=== PATIENT | female | born 1935 | race Caucasian/White ===

== ENCOUNTER 2018-10-27 18:09 | Observation (INO) | payer OTHER ==
[2018-10-27 18:34] VITALS: BMI 28.0
[2018-10-27 19:10] LABS: HEMATOCRIT 44.7 % (32.4-45.2); HEMOGLOBIN 14.3 GM/dl (10.7-15.3); MCH 27.3 pg (25.7-33.7); MCHC 31.9 g/dl (32.0-36.0); MEAN CELL VOLUME 85.5 fl (80-96); MEAN PLT VOLUME 9.8 fl (7.5-11.1); PLATELET COUNT 140 K/MM3 (134-434); RBC 5.23 M/mm3 (3.60-5.2); RDW 12.6 % (11.6-15.6); WHITE BLOOD COUNT 7.2 K/mm3 (4.0-10.8)
[2018-10-27 19:23] LABS: ALBUMIN 4.1 g/dl (3.4-5.0); ALK PHOS 116 U/L (45-117); ANION GAP 6 MMOL/L (8-16); BILIRUBIN,TOTAL 0.9 mg/dl (0.2-1); BLOOD UREA NITROGEN 13 mg/dl (7-18); CHLORIDE 100 mmol/L (98-107); CO2 29 mmol/L (21-32); CREATININE 0.6 mg/dl (0.55-1.3); GLUCOSE,RANDOM 100 mg/dl (74-106); POTASSIUM 3.6 mmol/L (3.5-5.1); SGOT/AST 24 U/L (15-37); SGPT/ALT 22 U/L (13-61); SODIUM 135 mmol/L (136-145); TOT PROT 7.2 g/dl (6.4-8.2)
[2018-10-27] MEDS ORDERED: metoPROLOL SUCCINATE 25 MG TAB.SR.24H (FP) PO ONE (20:30)
--- NOTE | 2018-10-27 21:27 | HP ---
Admitting History and Physical - Admission Chief Complaint: dizziness, fast heart beats and shortness of breathe at home when ambulating History Source: Patient, Family Member Limitations to Obtaining History: No Limitations - Past Medical History Cardiovascular: Yes: HTN, Hyperlipdemia Pulmonary: Yes: COPD ...: No Endocrine: Yes: Hypothyroidism - Smoking History Smoking history: Former smoker Have you smoked in the past 12 months: No Aproximately how many cigarettes per day: 0 If you are a former smoker, when did you quit?: 1999 - Alcohol/Substance Use Hx Alcohol Use: No (SOCIALLY) Home Medications - Allergies Allergies/Adverse Reactions: Allergies Allergy/AdvReac Type Severity Reaction Status Date / Time Penicillins Allergy Intermediate Rash Verified 10/27/18 18:34 - Home Medications Home Medications: Ambulatory Orders Albuterol Sulfate Inhaler - [Ventolin Hfa Inhaler -] 2 inh PO TID 10/27/18 Amlodipine Besylate [Norvasc -] 5 mg PO DAILY 10/27/18 Aspirin [ASA -] 81 mg PO DAILY 10/27/18 Atorvastatin Calcium [Lipitor] 10 mg PO DAILY 10/27/18 Budesonide/Formeterol Fumarate [SYMBICORT 160/4.5mcg -] 2 inh PO DAILY 10/27/18 Levothyroxine [Synthroid -] 25 mcg PO DAILY 10/27/18 Losartan/Hydrochlorothiazide [Losartan-Hctz 100-12.5 mg Tab] 1 each PO DAILY Potassium Chloride 10 meq PO DAILY 10/27/18 Tiotropium [place] [Spiriva] 18 mcg IH DAILY 10/27/18 Vit C/E/Zn/Coppr/Lutein/Zeaxan [Preservision Areds 2 Softgel] 2 each PO DAILY Review of Systems - Review of Systems Constitutional: reports: Weakness Cardiovascular: reports: Palpitations, Shortness of Breath Respiratory: reports: SOB, SOB on Exertion Gastrointestinal: reports: No Symptoms Genitourinary: reports: No Symptoms Psychiatric: reports: Anxiety Physical Examination Vital Signs: Vital Signs Temperature 97.9 F 10/27/18 18:23 Pulse Rate 93 H 10/27/18 18:23 Respiratory Rate 10/27/18 19:54 Blood Pressure 152/88 10/27/18 18:23 O2 Sat by Pulse Oximetry (%) Constitutional: Yes: No Distress Eyes: Yes: Conjunctiva Clear, EOM Intact HENT: Yes: Atraumatic, Normocephalic Neck: Yes: Supple, Trachea Midline Cardiovascular: Yes: Tachycardia, Pulse Irregular Respiratory: Yes: Regular, CTA Bilaterally Gastrointestinal: Yes: Normal Bowel Sounds, Soft, Abdomen, Obese. No: Hepatomegaly, Splenomegaly, Tenderness Extremities: No: Calf Tenderness Edema: No Peripheral Pulses WNL: Yes Integumentary: Yes: Other (left inner mello skin nodule present, slightly inflammed) Neurological: Yes: Alert, Oriented Psychiatric: Yes: Alert, Oriented Labs: CBC, BMP 10/27/18 18:50 10/27/18 18:50 Imaging - Results Chest X-ray: Other (no cardiomegaly , no pleural effusion, no infiltrate) EKG: Other (sudden changes in HR form 80 b/min tp 154 b/min, irregular, patient symptomatic during the arrhythmia) Problem List - Problems (1) Supraventricular arrhythmia Assessment/Plan: start Toprol 25 mg po bid telemetry monitoring, CBC, CMP, TSH, cardiac enzymes, Cardiology consults EKG in am Code(s): I49.9 - CARDIAC ARRHYTHMIA, UNSPECIFIED (2) Hypothyroidism Assessment/Plan: TSH levels Code(s): E03.9 - HYPOTHYROIDISM, UNSPECIFIED (3) HTN (hypertension) Assessment/Plan: continue VAlsart/HCTz , Norvasc Code(s): I10 - ESSENTIAL (PRIMARY) HYPERTENSION (4) COPD (chronic obstructive pulmonary disease) Assessment/Plan: Spiriva and Symbicort Code(s): J44.9 - CHRONIC OBSTRUCTIVE PULMONARY DISEASE, UNSPECIFIED
[2018-10-27] MEDS: amLODIPine BESYLATE 5 MG TABLET (FP) PO SCH (21:41)
[2018-10-27] MEDS: ATORVASTATIN CA 20 MG TABLET (FP) PO SCH (21:41)
[2018-10-27] MEDS: BUDESONIDE/FORMETEROL FUMARATE 160/4.5 mcg INHALER IH SCH (22:20)
[2018-10-27] MEDS: TIOTROPIUM BROMIDE 2.5 MCG (SPIRIVA) RESPIMAT INHALER IH SCH (22:20)
[2018-10-28] MEDS: LEVOTHYROXINE NA 50 MCG TABLET (FP) PO SCH (06:50)
[2018-10-28] MEDS ORDERED: PT OWN MED DRAWER 7, Y5N ONE (09:36)
[2018-10-28] MEDS: BUDESONIDE/FORMETEROL FUMARATE 160/4.5 mcg INHALER IH SCH ×2 (09:47→22:03)
[2018-10-28] MEDS: metoPROLOL SUCCINATE 25 MG TAB.SR.24H (FP) PO SCH ×2 (09:47→22:00)
[2018-10-28] MEDS: HYDROCHLOROTHIAZIDE 12.5 MG CAPSULE (FP) PO SCH (09:47)
[2018-10-28] MEDS: TIOTROPIUM BROMIDE 2.5 MCG (SPIRIVA) RESPIMAT INHALER IH SCH (09:47)
[2018-10-28] MEDS: VALSARTAN 80 MG TABLET (UD) PO SCH (09:47)
[2018-10-28] MEDS: ASPIRIN 81 MG CHEWABLE TABLETS PO SCH (09:47)
--- NOTE | 2018-10-28 11:02 | EKG ---
Test Reason : Blood Pressure : / mmHG Vent. Rate : 083 BPM Atrial Rate : 083 BPM P-R Int : 132 ms QRS Dur : 098 ms QT Int : 388 ms P-R-T Axes : 000 067 079 degrees QTc Int : 455 ms SINUS RHYTHM WITH PREMATURE SUPRAVENTRICULAR COMPLEXES ANTERIOR INFARCT (CITED ON OR BEFORE 27-OCT-2018) ABNORMAL ECG WHEN COMPARED WITH ECG OF 27-OCT-2018 18:48, PREMATURE VENTRICULAR COMPLEXES ARE NO LONGER PRESENT Confirmed by DAVID WINTER MD ([id number]) on 10/28/2018 11:02:14 AM Referred By: MISA GARRETT Confirmed By:DAVID WINTER MD
--- NOTE | 2018-10-28 11:02 | EKG ---
Test Reason : Blood Pressure : / mmHG Vent. Rate : 093 BPM Atrial Rate : 093 BPM P-R Int : 170 ms QRS Dur : 094 ms QT Int : 376 ms P-R-T Axes : 064 066 067 degrees QTc Int : 467 ms SINUS RHYTHM WITH OCCASIONAL PREMATURE VENTRICULAR COMPLEXES AND PREMATURE ATRIAL COMPLEXES CANNOT RULE OUT ANTERIOR INFARCT , AGE UNDETERMINED ABNORMAL ECG NO PREVIOUS ECGS AVAILABLE Confirmed by DAVID WINTER MD ([id number]) on 10/28/2018 11:02:19 AM Referred By: YAZMIN ARIAS Confirmed By:DAVID WINTER MD
[2018-10-28 13:16] LABS: URINE APPEARANCE CLEAR; URINE COLOR YELLOW; URINE GLUCOSE (UA) NEGATIVE (NEGATIVE)
[2018-10-28 13:17] LABS: PH,URINE 6.5 (4.5-8); URINE BILIRUBIN NEGATIVE (NEGATIVE); URINE KETONE NEGATIVE (NEGATIVE); URINE LEUK ESTERASE 2+ (NEGATIVE); URINE NITRITE NEGATIVE (NEGATIVE); URINE PROTEIN NEGATIVE (NEGATIVE); URINE RBC 0-3 /hpf (0-4); URINE UROBILINOGEN 0.2 (0.2-1.0); URINE WBC 0-3 /hpf (0-5)
[2018-10-28 13:18] LABS: EPI CELLS 1+ /HPF; URINE BACTERIA FEW /hpf (NEGATIVE)
--- NOTE | 2018-10-28 13:42 | CON.CARD ---
Consult Consult Specialty:: Cardiology Referred by:: Mark Reason for Consultation:: abnormal EKG - History of Present Illness Chief Complaint: palps, dyspnea on exertion History of Present Illness: 83F h/o hypothyroidism, HTN, COPD p/w dizziness. Has had dizziness on and off for the last week, worse when standing up and better when lying down. denies palpitations, although per report endorsed this prior. Last time she felt dizziness like this was at least a year ago. She felt dizziness again yesterday and saw Dr. Flores, EKG showed tachycardia with poor baseline. Sees Dr. Samuels for cardio, had been seen for similar in the past thought to be sinus tachy with PACs, was briefly on AC which was stopped at that time. Currently feels well, denies chest pain, palps, dizziness, lightheadedness. - Past Medical History Cardio/Vascular: Yes: HTN, Hyperlipdemia Pulmonary: Yes: COPD ...: No Endocrine: Yes: Hypothyroidism - Alcohol/Substance Use Hx Alcohol Use: No (SOCIALLY) - Smoking History Smoking history: Former smoker Have you smoked in the past 12 months: No Aproximately how many cigarettes per day: 0 If you are a former smoker, when did you quit?: 1999 Home Medications - Allergies Allergies/Adverse Reactions: Allergies Allergy/AdvReac Type Severity Reaction Status Date / Time Penicillins Allergy Intermediate Rash Verified 10/27/18 18:34 - Home Medications Home Medications: Ambulatory Orders Albuterol Sulfate Inhaler - [Ventolin Hfa Inhaler -] 2 inh PO TID 10/27/18 Amlodipine Besylate [Norvasc -] 5 mg PO DAILY 10/27/18 Aspirin [ASA -] 81 mg PO DAILY 10/27/18 Atorvastatin Calcium [Lipitor] 10 mg PO DAILY 10/27/18 Budesonide/Formeterol Fumarate [SYMBICORT 160/4.5mcg -] 2 inh PO DAILY 10/27/18 Levothyroxine [Synthroid -] 25 mcg PO DAILY 10/27/18 Losartan/Hydrochlorothiazide [Losartan-Hctz 100-12.5 mg Tab] 1 each PO DAILY Potassium Chloride 10 meq PO DAILY 10/27/18 Tiotropium [place] [Spiriva] 18 mcg IH DAILY 10/27/18 Vit C/E/Zn/Coppr/Lutein/Zeaxan [Preservision Areds 2 Softgel] 2 each PO DAILY Family Disease History - Family Disease History Family History: Unremarkable Review of Systems - Review of Systems Constitutional: reports: No Symptoms Eyes: reports: No Symptoms HENT: reports: No Symptoms Neck: reports: No Symptoms Cardiovascular: reports: No Symptoms Respiratory: reports: No Symptoms Gastrointestinal: reports: No Symptoms Genitourinary: reports: No Symptoms Musculoskeletal: reports: No Symptoms Integumentary: reports: No Symptoms Neurological: reports: No Symptoms Endocrine: reports: No Symptoms Hematology/Lymphatic: reports: No Symptoms Psychiatric: reports: No Symptoms Vital Signs: Vital Signs Temperature 98.2 F 10/28/18 10:00 Pulse Rate 78 10/28/18 10:00 Respiratory Rate 18 10/28/18 10:00 Blood Pressure 118/80 10/28/18 10:00 O2 Sat by Pulse Oximetry (%) 95 10/28/18 10:00 Constitutional: Yes: Well Nourished, No Distress Eyes: Yes: Conjunctiva Clear, EOM Intact HENT: Yes: Atraumatic, Normocephalic Neck: Yes: Supple, Trachea Midline Respiratory: Yes: Regular, CTA Bilaterally Gastrointestinal: Yes: Normal Bowel Sounds, Soft Cardiovascular: Yes: Pulse Irregular JVD: No Carotid Bruit: No PMI: Non-Displaced Heart Sounds: Yes: S1, S2 Musculoskeletal: No: Back Pain Extremities: No: Cold Edema: No Peripheral Pulses WNL: No Peripheral Pulses: 1+ Left Doralis Pedis, 1+ Right Dorsalis Pedis Integumentary: No: Jaundice Neurological: Yes: Alert, Oriented Psychiatric: No: Agitated - Other Data Labs, Other Data: CBC, BMP 10/27/18 18:50 10/27/18 18:50 Troponin, BNP 10/27/18 18:50 Troponin I < 0.03 Troponin, BNP 10/27/18 18:50 Troponin I < 0.03 Assessment/Plan MPI 02/24 (leanna): Ischemic ST-T changes occuring during rapid PSVT (HR 150 bpm)-- including when present prior to Lexiscan injection. These resolve during sinus rhythm. PSVT, frequent APCs, infrequent PVCs. No evidence of ischemia. Fixed apical and anteroseptal defect with significant breast attenuation present: cannot exclude prior silent anteroseptal infarct based on the possibility of hypokinesis of this territory on gated images, although presence of gating artifact confounds assessment. Normal LVEF. Small LV cavity size (EDV 42 mL), with no transient dilation pattern. Echo 02/24: 1. Sinus rhythm with APCs. 2. This was a technically difficult study with suboptimal views. 3. The left ventricular size is normal. 4. Assessment of overall left ventricular systolic function is confounded by poor image quality. LVEF is likely in the low-normal range, estimated between 50 - 55 %. Stallings's estimate is incorrect, due to measurement error--cannot be accurately measured. 5. LA pressure is uncertain. 6. The right ventricle is normal in size and function. 7. Left atrium is mildly dilated by volume. 8. Unable to estimate RVSP due to inadequate TR jet spectral doppler profile. 9. Normal valve function. Echo 01/2017 ([facility]): nl LV/EF. nl RV. nl LA. valves WNL. LE arterial dopplers 02/24: bilateral biphasic waveforms throughout suggestive of inflow dz CT chest 12/2016: + centrilobular emphsema. bibasilar nodular densities suspicious for metastatic dz. moderate to severe coronary calcifications. moderate mural calcification thoracic aorta, small ulcerated plaque distal thoracic aorta. pulmonary trunk 3.3 cm. IMAGES REVIEWED: LMCA calcification, small prox LAD calcification, extensive calc more distally. diffuse calcifications LCX and RCA beginning proximally. EKG from clinic sinus tach with PACs 145 bpm EKG: sinus rhythm with PACs and PVCs tele sinus with PACs, PVCs with episodes of sinus tach with PACs/PVCs, atrial tachycardia tachycardia, frequent PACs, PVCs, dizziness - trop neg x 1, TSH nl - likely atrial tachycardia - EKGs and tele strips reviewed with EP, recommend no anticoagulation per discussion with EP - continue metoprolol succinate 25 mg BID - echo pending, if benign findings no further cardiac workup, follow up with Dr. Samuels HTN - on amlodipine, losartan CAD - extensive coronary calcifications on CT chest, inc LM and prox 3VD, asymptomatic - on aspirin, statin HLD - on statin COPD - stable on inhalers
--- NOTE | 2018-10-28 15:42 | ECHO ---
Name: MOISES SHAH Exam:Adult Echocardiogram Study Date: 10/28/2018 02:40 PM Age: 83 yrs Reason For Study: Tachycardia Height: 63 in Weight: 159 lb BSA: 1.8 m2 MMode/2D Measurements & Calculations IVSd: 1.4 cm Ao root diam: 2.5 cm LVIDd: 4.0 cm LA dimension: 3.0 cm LVIDs: 2.2 cm LVPWd: 1.1 cm EDV(Teich): 69.8 ml LVOT diam: 2.0 cm ESV(Teich): 15.7 ml Doppler Measurements & Calculations MV E max candelario: 65.1 cm/sec MV A max candelario: 121.2 cm/sec MV dec slope: 528.3 cm/sec2 MV E/A: 0.54 Ao V2 max: 168.8 cm/sec LV V1 max P.7 mmHg Ao max P.4 mmHg LV V1 max: 119.4 cm/sec AMRIT(V,D): 2.2 cm2 PA V2 max: 89.0 cm/sec PI end-d candelario: 86.4 cm/sec PA max P.2 mmHg Procedure A complete two-dimensional transthoracic echocardiogram was performed (2D, M-mode, Doppler and color flow Doppler). Left Ventricle The left ventricular size, thickness and function are normal. The left ventricular ejection fraction is normal. Ejection Fraction = 55-60%. The left ventricular wall motion is normal. Right Ventricle The right ventricle is normal in size and function. Atria Normal left and right atrial size and function. Mitral Valve There is no mitral regurgitation noted. Tricuspid Valve There is trace tricuspid regurgitation. There was insufficient TR detected to calculate RV systolic p ressure. Aortic Valve No hemodynamically significant valvular aortic stenosis. No aortic regurgitation is present. Pulmonic Valve There is no pulmonic valvular regurgitation. Great Vessels The aortic root is normal size. Pericardium/Pleura There is no pericardial effusion. Interpretation Summary The left ventricular size, thickness and function are normal The right ventricle is normal in size and function. There is trace tricuspid regurgitation. MD Darryn Foster 10/28/2018 03:42 PM
[2018-10-28] MEDS: ATORVASTATIN CA 20 MG TABLET (FP) PO SCH (22:00)
[2018-10-28] MEDS: amLODIPine BESYLATE 5 MG TABLET (FP) PO SCH (22:00)
--- NOTE | 2018-10-28 22:38 | PN ---
Progress Note, Physician Chief Complaint: dizziness, weakness History of Present Illness: 83 yo female admitted for dizziness associated with tachyarrhythmia. The patient was started on Toprol 25 mg po bid with good control of her HR. She tolerates yifan medication well and denies any lightheadedness or weakness. The blood pressure has been well controlled well. - Current Medication List Current Medications: Active Medications Amlodipine Besylate (Norvasc -) 5 mg PO HS [facility] Last Admin: 10/28/18 22:00 Dose: 5 mg Aspirin (Asa -) 81 mg PO DAILY [facility] Last Admin: 10/28/18 09:47 Dose: 81 mg Atorvastatin Calcium (Lipitor -) 20 mg PO HS [facility] Last Admin: 10/28/18 22:00 Dose: 20 mg Budesonide/Formoterol Fumarate (Symbicort 160/4.5mcg -) 2 puff IH BID [facility] Last Admin: 10/28/18 22:03 Dose: 2 puff Hydrochlorothiazide (Hctz -) 12.5 mg PO DAILY [facility] Last Admin: 10/28/18 09:47 Dose: 12.5 mg Levothyroxine Sodium (Synthroid -) 50 mcg PO DAILY@0700 [facility] Last Admin: 10/28/18 06:50 Dose: 50 mcg Metoprolol Succinate (Toprol Xl -) 25 mg PO BID [facility] Last Admin: 10/28/18 22:00 Dose: 25 mg Tiotropium [place] (Spiriva Respimat) 2 puff IH DAILY [facility] Last Admin: 10/28/18 09:47 Dose: 2 puff Valsartan (Diovan -) 80 mg PO DAILY [facility] Last Admin: 10/28/18 09:47 Dose: 80 mg - Objective Vital Signs: Vital Signs Temperature 97.9 F 10/28/18 22:00 Pulse Rate 76 10/28/18 22:00 Respiratory Rate 19 10/28/18 22:00 Blood Pressure 143/86 10/28/18 22:00 O2 Sat by Pulse Oximetry (%) 95 10/28/18 22:06 Constitutional: Yes: No Distress, Calm Eyes: Yes: Conjunctiva Clear, EOM Intact HENT: Yes: Atraumatic, Normocephalic Neck: Yes: Supple, Trachea Midline Cardiovascular: Yes: Regular Rate and Rhythm, S1, S2 Respiratory: Yes: Regular, CTA Bilaterally Gastrointestinal: Yes: Normal Bowel Sounds, Soft, Abdomen, Obese, Other ( umbilical hernia) Genitourinary: No: CVA Tenderness - Left Musculoskeletal: Yes: Back Pain. No: Joint Stiffness, Joint Swelling Edema: No Peripheral Pulses WNL: Yes Psychiatric: Yes: Alert, Oriented Labs: CBC, BMP 10/27/18 18:50 10/27/18 18:50 Problem List - Problems (1) Supraventricular arrhythmia Assessment/Plan: start Toprol 25 mg po bid telemetry monitoring, CBC, CMP, TSH, cardiac enzymes, Cardiology consults EKG in am Code(s): I49.9 - CARDIAC ARRHYTHMIA, UNSPECIFIED (2) Hypothyroidism Assessment/Plan: TSH levels wnl Code(s): E03.9 - HYPOTHYROIDISM, UNSPECIFIED (3) HTN (hypertension) Assessment/Plan: continue VAlsartan/HCTz , Norvasc Code(s): I10 - ESSENTIAL (PRIMARY) HYPERTENSION (4) COPD (chronic obstructive pulmonary disease) Assessment/Plan: Spiriva and Symbicort Code(s): J44.9 - CHRONIC OBSTRUCTIVE PULMONARY DISEASE, UNSPECIFIED
[2018-10-29 06:38] VITALS: BP 102/69; PULSE 72; TEMP 97.9
[2018-10-29] MEDS: LEVOTHYROXINE NA 50 MCG TABLET (FP) PO SCH (06:49)
[2018-10-29 08:04] LABS: ALK PHOS 110 U/L (45-117); ANION GAP 9 MMOL/L (8-16); BILIRUBIN,TOTAL 0.7 mg/dl (0.2-1); BLOOD UREA NITROGEN 15 mg/dl (7-18); CALCIUM 8.8 mg/dl (8.5-10); CHLORIDE 101 mmol/L (98-107); CO2 29 mmol/L (21-32); CREATININE 0.6 mg/dl (0.55-1.3); GLUCOSE,RANDOM 107 mg/dl (74-106); MAGNESIUM 2.1 mg/dL (1.8-2.4); POTASSIUM 3.9 mmol/L (3.5-5.1); SGOT/AST 21 U/L (15-37); SGPT/ALT 22 U/L (13-61); SODIUM 139 mmol/L (136-145)
[2018-10-29 08:10] LABS: CHOLESTEROL 129 mg/dl (50-200); HDL CHOLESTEROL 52 mg/dl (40-60); LDL CHOLESTEROL (ONLY DFH) 56 mg/dl (5-100); TRIGLYCERIDES 106 mg/dl (0-150)
[2018-10-29] MEDS: VALSARTAN 80 MG TABLET (UD) PO SCH (09:54)
[2018-10-29] MEDS: ASPIRIN 81 MG CHEWABLE TABLETS PO SCH (09:54)
[2018-10-29] MEDS: HYDROCHLOROTHIAZIDE 12.5 MG CAPSULE (FP) PO SCH (09:54)
[2018-10-29] MEDS: metoPROLOL SUCCINATE 25 MG TAB.SR.24H (FP) PO SCH (09:55)
[2018-10-29] MEDS: BUDESONIDE/FORMETEROL FUMARATE 160/4.5 mcg INHALER IH SCH (09:55)
[2018-10-29] MEDS: TIOTROPIUM BROMIDE 2.5 MCG (SPIRIVA) RESPIMAT INHALER IH SCH (09:55)
--- NOTE | 2018-11-07 16:14 | DS ---
Physical Examination Vital Signs: Vital Signs Temperature 97.9 F 10/29/18 06:00 Pulse Rate 72 10/29/18 06:00 Respiratory Rate 18 10/29/18 08:54 Blood Pressure 102/69 10/29/18 06:00 O2 Sat by Pulse Oximetry (%) 95 10/29/18 08:54 Constitutional: Yes: No Distress, Calm Eyes: Yes: Conjunctiva Clear, EOM Intact HENT: Yes: Atraumatic, Normocephalic Neck: Yes: Supple, Trachea Midline Cardiovascular: Yes: Regular Rate and Rhythm Respiratory: Yes: Regular, CTA Bilaterally Gastrointestinal: Yes: Normal Bowel Sounds, Soft ...Rectal Exam: Yes: WNL Breast(s): Yes: WNL Musculoskeletal: Yes: WNL Extremities: Yes: WNL Peripheral Pulses WNL: Yes Integumentary: Yes: WNL Neurological: Yes: Alert, Oriented Psychiatric: Yes: Alert, Oriented Labs: CBC, BMP 10/27/18 18:50 10/29/18 07:12 Discharge Summary Reason For Visit: ATRIAL FIBRILLATION Hospital Course: 83 yo female admitted for dyspnea and dizziness. She was admitted and monitored on the telemetry unit. SHe was found to have runs of tachyaarhythmia, labeled as MAT.Treatment with Toprol was started with good response. Discharged home with follow up instructions for 1 month with myself. Condition: Good - Instructions Disposition: HOME - Home Medications Comprehensive Discharge Medication List: Ambulatory Orders Albuterol Sulfate Inhaler - [Ventolin HFA Inhaler -] 2 inh PO TID 10/27/18 Amlodipine Besylate [Norvasc -] 5 mg PO DAILY 10/27/18 Aspirin [ASA -] 81 mg PO DAILY 10/27/18 Budesonide/Formeterol Fumarate [SYMBICORT 160/4.5mcg -] 2 inh PO DAILY 10/27/18 Losartan/Hydrochlorothiazide [Losartan-Hctz 100-12.5 mg Tab] 1 each PO DAILY Tiotropium [place] [Spiriva] 18 mcg IH DAILY 10/27/18 Vit C/E/Zn/Coppr/Lutein/Zeaxan [Preservision Areds 2 Softgel] 2 each PO DAILY Amlodipine Besylate [Norvasc -] 5 mg PO HS tablet 10/29/18 Aspirin [ASA -] 81 mg PO DAILY tab.chew 10/29/18 Atorvastatin [place] [Lipitor] 20 mg PO HS tablet 10/29/18 Budesonide/Formeterol Fumarate [SYMBICORT 160/4.5mcg -] 2 puff IH BID inhaler 10/29/18 Hydrochlorothiazide [Hctz -] 12.5 mg PO DAILY cap 10/29/18 Levothyroxine [Synthroid -] 50 mcg PO DAILY@0700 tablet 10/29/18 Metoprolol Succinate [Toprol XL -] 25 mg PO BID 30 Days #60 tab.sr.24h 10/29/18 Tiotropium [place] [Spiriva Respimat] 2 puff IH DAILY inhaler 10/29/18 Valsartan [Diovan] 80 mg PO DAILY tablet 10/29/18
== END 2018-10-29 10:00 | disposition home or self-care (01) ==
LOC: INTOOBSV 18:09 → FM/S 18:09
PROVIDERS: ADMIT Internal Medicine; ATTEND Internal Medicine
PROC: 3E0F7GC Introduction of Other Therapeutic Substance into Respiratory Tract, Via Natural or Artificial Opening (ICD-10-PCS; principal; 2018-10-27)
DX: I47.1 Supraventricular tachycardia (principal); I10 Essential (primary) hypertension; E78.5 Hyperlipidemia, unspecified; E03.9 Hypothyroidism, unspecified; J44.9 Chronic obstructive pulmonary disease, unspecified; Z79.82 Long term (current) use of aspirin; Z88.0 Allergy status to penicillin
CPT/HCPCS: 36415; 71045-TC-FY; 80053; 80061; 81003; 82550; 83036; 83735; 84439; 84443; 84484; 85027; 87086; 93005; 93306-TC; 94640; G0378

== ENCOUNTER 2018-12-13 07:58 | Day surgery (SDC) | payer OTHER ==
[2018-12-07 12:25] VITALS: BMI 26.1
[2018-12-13] MEDS ORDERED: PROPOFOL 20 ML ONE ×2 (09:44)
[2018-12-13 10:54] VITALS: TEMP 97
[2018-12-13 11:23] VITALS: BP 124/73; PULSE 80
== END 2018-12-13 11:40 | disposition home or self-care (01) ==
LOC: FASU-ENDO 07:58
PROVIDERS: ATTEND Internal Medicine Gastroenterology
PROC: 0DJD8ZZ Inspection of Lower Intestinal Tract, Via Natural or Artificial Opening Endoscopic (ICD-10-PCS; principal; 2018-12-13 10:26)
DX: Z85.038 Personal history of other malignant neoplasm of large intestine (principal); Z98.0 Intestinal bypass and anastomosis status; K57.30 Diverticulosis of large intestine without perforation or abscess without bleeding